=== PATIENT | male | born 1990 | race Caucasian/White ===

== ENCOUNTER 2019-04-24 09:35 | Emergency (ER) | payer OTHER ==
--- NOTE | 2019-04-24 09:52 | ED ---
Complex/Multi-Sys Presentation - HPI Summary HPI Summary: 29 year old male presents to the ED from [facility] with a chief complaint of hip, lower back, and shoulder pain secondary to falling from an unknown height at 0800 this morning. Patient reports LOC. He claims he might have hit his head. He reports increased back pain upon leg movement. PMHx of asthma. - History Of Current Complaint Hx Obtained From: Patient Onset/Duration: Sudden Onset, Still Present Timing: Minutes Severity Currently: Moderate Severity Initially: Moderate Location: Pain At: - shoulder, hip, lower back. Associated Signs And Symptoms: Positive: Syncope, Back Pain, Recent Trauma - From fall PMH/Surg Hx/FS Hx/Imm Hx Previously Healthy: Yes Respiratory History: Reports: Hx Asthma - Family History Known Family History: Positive: Non-Contributory - Social History Occupation: Unemployed Hx Substance Use: No Review of Systems Negative: Fever Positive: Arthralgia - hip pain, shoulder pain, Myalgia - back pain All Other Systems Reviewed And Are Negative: Yes Physical Exam - Summary Physical Exam Summary: Appearance: The patient is well-nourished in no acute distress and in no acute pain. Skin: The skin is warm and dry, and skin color reflects adequate perfusion. HEENT: The head is normocephalic and atraumatic. The pupils are equal and reactive. The conjunctivae are clear and without drainage. Nares are patent and without drainage. Mouth reveals moist mucous membranes, and the throat is without erythema and exudate. The external ears are intact. The ear canals are patent and without drainage. The tympanic membranes are intact. Neck: The neck is supple with full range of motion and non-tender. There are no carotid bruits. There is no neck vein distension. Respiratory: Chest is non-tender. Lungs are clear to auscultation and breath sounds are symmetrical and equal. Cardiovascular: Heart is regular rate and rhythm. There is no murmur or rub auscultated. There is no peripheral edema and pulses are symmetrical and equal. Abdomen: The abdomen is soft and non-tender. There are normal bowel sounds heard in all four quadrants and there is no organomegaly palpated. Musculoskeletal: There is no back tenderness noted. Extremities are non-tender with full range of motion. There is good capillary refill. There is no peripheral edema or calf tenderness elicited. Positive straight leg raise. Mild tenderness right hip. Paraspinal tenderness. Neurological: Patient is alert and oriented to person, place and time. The patient has symmetrical motor strength in all four extremities. Cranial nerves are grossly intact. Deep tendon reflexes are symmetrical and equal in all four extremities. Psychiatric: The patient has an appropriate affect and does not exhibit any anxiety or depression. Triage Information Reviewed: Yes Vital Signs Reviewed: Yes Procedures - Sedation Patient Received Moderate/Deep Sedation with Procedure: No Diagnostics - Laboratory Lab Statement: Any lab studies that have been ordered have been reviewed, and results considered in the medical decision making process. - CT C-spine CT CT Interpretation Completed By: Radiologist Summary of CT Findings: IMPRESSION: 1. No fracture or traumatic malalignment of cervical spine. 2. Subtle straightening of the cervical lordotic curvature could be related to patient positioning or muscular spasm. An ED physician has reviewed this report. L-spine CT CT Interpretation Completed By: Radiologist Summary of CT Findings: IMPRESSION: No fracture or traumatic malalignment of the thoracic spine. An ED physician has reviewed this report. Complex Multi-Symp Course/Dx Course Of Treatment: Mr. Reza was primarily complaining of low back pain and found on CT scan to have herniated disks. Not sure how acute these are what they will need to be treated symptomatically. I recommended normal activities but nothing exertional and ibuprofen. - Diagnoses Provider Diagnoses: Herniated disc, Low back strain Discharge ED - Sign-Out/Discharge Documenting (check all that apply): Patient Departure - discharge back to facilities - Discharge Plan Condition: Stable Disposition: HOME Patient Education Materials: Lumbar Disc Herniation (ED), Low Back Strain (ED) Referrals: [facility] [Outside] Additional Instructions: Follow up with [facility] in 2-3 days. Return to the Emergency Room if you experience new or worsened symptoms. Take ibuprofen for the pain. - Billing Disposition and Condition Condition: STABLE Disposition: Home - Attestation Statements Document Initiated by Scribe: Yes Documenting Scribe: Karthik Velasquez Provider For Whom Mary is Documenting (Include Credential): Javier More MD Scribe Attestation: Karthik Davila, scribed for Javier More MD on 04/24/19 at 1421. Scribe Documentation Reviewed: Yes Provider Attestation: The documentation as recorded by the scribKarthik royal accurately reflects the service I personally performed and the decisions made by me, Javier More MD Status of Scribe Document: Viewed
[2019-04-24 12:48] VITALS: BP 138/68
== END 2019-04-24 12:45 | disposition home or self-care (01) ==
LOC: ED 09:35
DX: S39.012A Strain of muscle, fascia and tendon of lower back, initial encounter (principal); M51.27 Other intervertebral disc displacement, lumbosacral region; W17.89XA Other fall from one level to another, initial encounter; Y92.149 Unspecified place in prison as the place of occurrence of the external cause; J45.909 Unspecified asthma, uncomplicated
CPT/HCPCS: 72125; 72128; 72131; 99283